=== PATIENT | female | born 1950 | race Two or more races ===

== ENCOUNTER 2019-03-01 16:00 | Emergency (ER) | payer OTHER ==
[~2019-03-01] VITALS: Ht 154.9 cm; Wt 56.2 kg
[2019-03-01] MEDS ORDERED: ZOLOFT50 MG (16:34)
[2019-03-01] MEDS ORDERED: SINGULAIR10 MG (16:34)
[2019-03-01] MEDS ORDERED: ZANTAC300 MG (16:35)
[2019-03-02] MEDS ORDERED: IBUPROFEN800 MG PO (01:51)
== END 2019-03-02 02:40 | disposition home or self-care (01) ==
LOC: ER 16:00
DX: R10.31 Right lower quadrant pain (principal)

== ENCOUNTER 2025-02-12 13:49 | Emergency (ER) | payer OTHER ==
[~2025-02-12] VITALS: Ht 152.4 cm; Wt 52.2 kg
[~2025-02-12 13:49] MED LIST: IBUPROFEN800 MG PO; LEVOTHYROXINE25 MCG PO; SINGULAIR10 MG; ZANTAC300 MG; ZOLOFT50 MG
[2025-02-12] MEDS ORDERED: LEVO-T25 MCG (14:46)
[2025-02-12] MEDS ORDERED: SERTRALINE HCL50 MG (14:46)
[2025-02-12] MEDS ORDERED: CLONAZEPAM0.5 MG (14:47)
[2025-02-12] MEDS ORDERED: MONTELUKAST SOD10 MG (14:47)
[2025-02-12] MEDS ORDERED: CEFTRIAXONE SODIUM 1,000 MG VIAL IM ONE (16:30)
[2025-02-12] MEDS ORDERED: FAMOTIDINE/PF 20 MG/2 ML VIAL IV ONE (16:30)
[2025-02-12 16:56] LABS: BASO % 0.3 % (0.1-1.2); EOS # 0.10 (0.04-0.54); EOS % 1.0 % (0.7-7.0); LYMPH # 1.16 (1.18-3.74); LYMPH % 11.1 % (19.3-53.1); MEAN PLATELET VOLUME 9.70 fl (9.4-12.4); MONO # 0.95 (0.24-0.82); MONO % 9.1 % (4.7-12.5); NEUT # 8.19 (1.56-6.13); NEUT % 78.2 % (34.0-71.1); RED CELL DISTRIBUTION WIDTH 14.5 % (11.6-14.4)
[2025-02-12 17:33] LABS: ERYTHROCYTE SEDIMENTATION RATE 104 mm/hr (0-30)
[2025-02-12 17:46] LABS: URINE APPEARANCE Clear; URINE BILIRRUBIN Negative (NEGATIVE); URINE BLOOD Negative; URINE COLOR Yellow; URINE GLUCOSE Negative (NEGATIVE); URINE KETONE Negative (NEGATIVE); URINE LEUKOCYTE Negative; URINE NITRATE Negative; URINE PROTEIN Negative (NEGATIVE); URINE UROBILINOGEN 0.2 E.U./dl
[2025-02-12 17:50] LABS: URINE RBC 3.5 uL (0.0-20.8)
[2025-02-12 17:53] LABS: URINE BACTERIA 3.5 uL (0.0-1933); URINE CAST 0.00 uL (0.0-1.40); URINE EPITHELIAL CELLS 1.0 uL (0.0-38.8); URINE WBC 1.6 uL (0.0-23.2)
[2025-02-12] MEDS ORDERED: DUI500 PO (18:09)
[2025-02-12] MEDS ORDERED: KETOROLAC TROMETHAMINE 30 MG VIAL IM ONE (18:45)
[2025-02-12 18:49] VITALS: BP 133/79; O2SAT 98
== END 2025-02-12 18:51 ==
LOC: ER 16:47
PROVIDERS: General Practice
DX: L03.113 Cellulitis of right upper limb (principal); M25.531 Pain in right wrist; E03.8 Other specified hypothyroidism; Z91.013 Allergy to seafood
CPT/HCPCS: 36415; 73100; 73560; 96365; 96372; 99283; J0696; J1885; J3490